=== PATIENT | female | born 1980 | race Two or more races ===

== ENCOUNTER 2018-04-20 20:56 | Emergency (ER) | payer MEDICAID, OTHER ==
[~2018-04-20] VITALS: Ht 162.6 cm; Wt 128.7 kg
[2018-04-20 21:13] VITALS: BP 128/84
[2018-04-20] MEDS ORDERED: KETOROLAC 30 MG/1 ML ONE (21:58)
[2018-04-20] MEDS ORDERED: ONDANSETRON ODT 4 MG ONE (21:58)
[2018-04-20] MEDS ORDERED: KETOROLAC 30 MG/1 ML IM ONE (22:00)
[2018-04-20] MEDS ORDERED: ONDANSETRON ODT 4 MG PO ONE (22:00)
[2018-04-20 22:06] LABS: BASOPHILS # (AUTO) 0.02 x10^3/uL (0-0.1); BASOPHILS % (AUTO) 0 % (0-1); EOSINOPHILS # (AUTO) 0.11 x10^3/uL (0-0.4); EOSINOPHILS % (AUTO) 1 % (1-7); LYMPHOCYTES # (AUTO) 2.15 x10^3/uL (1-3.4); LYMPHOCYTES % (AUTO) 22 % (22-44); MD NO; MEAN CORPUSCULAR HGB CONC 34.1 g/dL (32.4-35.8); MEAN CORPUSCULAR VOLUME 84.9 fL (80-100); MEAN PLATELET VOLUME 8.5 fL (7.4-10.4); MONOCYTES # (AUTO) 0.66 x10^3/uL (0.2-0.8); MONOCYTES % (AUTO) 7 % (2-9); NEUTROPHILS % (AUTO) 70 % (42-75); PLATELET COUNT 221 x10^3/uL (130-400); RED BLOOD COUNT 4.14 x10^6/uL (3.82-5.3); RED CELL DISTRIBUTION WIDTH 15.6 % (9.6-15.2)
[2018-04-20 22:18] LABS: ALANINE AMINOTRANSFERASE 46 U/L (12-78); ALBUMIN 3.1 g/dL (3.4-5.0); ANION GAP 5 mmol/L (5-15); CALCIUM 8.5 mg/dL (8.5-10.1); CHLORIDE 110 mmol/L (98-107); CREATININE 0.99 mg/dL (0.55-1.02)
[2018-04-20 22:20] LABS: ALKALINE PHOSPHATASE 131 U/L (45-117); BILIRUBIN,TOTAL 0.3 mg/dL (0.2-1.0); TOTAL PROTEIN 6.4 g/dL (6.4-8.2)
== END 2018-04-20 23:17 | disposition home or self-care (01) ==
LOC: ED 23:00
DX: N20.2 Calculus of kidney with calculus of ureter (principal); E11.9 Type 2 diabetes mellitus without complications
CPT/HCPCS: 36415; 80053; 83690; 85025; 96372; 99284; J1885; Q0162